=== PATIENT | male | born 2000 | race Two or more races ===

== ENCOUNTER 2023-05-01 23:50 | Emergency (ER) | payer OTHER ==
[~2023-05-01] VITALS: Ht 175.3 cm; Wt 117.9 kg
[2023-05-02] MEDS ORDERED: DOLOGESIC-DF 51 EACH PO (03:00)
[2023-05-02] MEDS ORDERED: ZYNCOF 20-400120 ML PO ×2 (03:01→03:02)
[2023-05-02] MEDS ORDERED: PHENAGIL TABLE1 EACH PO (03:03)
== END 2023-05-02 03:35 ==
LOC: ER 23:50
DX: J06.9 Acute upper respiratory infection, unspecified (principal)
CPT/HCPCS: 96372; 99282; J2930

== ENCOUNTER 2024-08-08 00:05 | Emergency (ER) | payer OTHER ==
[~2024-08-08] VITALS: Ht 177.8 cm; Wt 111.1 kg
[~2024-08-08 00:05] MED LIST: DOLOGESIC-DF 51 EACH PO; PHENAGIL TABLE1 EACH PO; ZYNCOF 20-400120 ML PO
[2024-08-08] MEDS ORDERED: DUI500 PO (01:43)
[2024-08-08] MEDS ORDERED: KETO10TA2 PO (01:43)
== END 2024-08-08 02:25 | disposition home or self-care (01) ==
LOC: ER 00:05
DX: S49.81XA Other specified injuries of right shoulder and upper arm, initial encounter (principal); S59.801A Other specified injuries of right elbow, initial encounter; V49.88XA Car occupant (driver) (passenger) injured in other specified transport accidents, initial encounter; Y93.89 Activity, other specified; Y92.89 Other specified places as the place of occurrence of the external cause; Y99.8 Other external cause status; M25.511 Pain in right shoulder

== ENCOUNTER → 2024-08-18 | Emergency (ER) | payer OTHER ==
[~2024-08-18] VITALS: Ht 175.3 cm; Wt 104.3 kg
[~2024-08-18] MED LIST changes: +CENTANY30 GM TOP; +CEPHALEXIN500 MG PO; +DUI500 PO; +KETO10TA2 PO
== END | disposition home or self-care (01) ==
LOC: ER 02:38
DX: S50.311A Abrasion of right elbow, initial encounter (principal); X58.XXXA Exposure to other specified factors, initial encounter; Y93.9 Activity, unspecified; Y92.9 Unspecified place or not applicable

== ENCOUNTER → 2024-12-10 | Emergency (ER) | payer OTHER ==
[~2024-12-10] VITALS: Ht 172.7 cm; Wt 99.3 kg
== END | disposition home or self-care (01) ==
LOC: ER 01:11
DX: Z53.21 Procedure and treatment not carried out due to patient leaving prior to being seen by health care provider (principal)

== ENCOUNTER → 2025-08-14 | Emergency (ER) | payer OTHER ==
[~2025-08-14] VITALS: Ht 177.8 cm; Wt 122.5 kg
== END | disposition left against medical advice (07) ==
LOC: ER 05:44
DX: Z53.21 Procedure and treatment not carried out due to patient leaving prior to being seen by health care provider (principal)